=== PATIENT | female | born 1935 | race Caucasian/White ===

== ENCOUNTER 2017-09-07 12:58 | Emergency (ER) | payer MEDICARE, MEDICAID ==
[2017-09-07] MEDS ORDERED: Morphine 2 MG/ML Syringe IVPUSH PRN (13:40)
[2017-09-07] MEDS ORDERED: Sodium Chloride 0.9% 10 ML Syringe FLUSH PRN (13:40)
[2017-09-07] MEDS ORDERED: Nitroglycerin 0.4 MG Tab.SL SL PRN (13:40)
[2017-09-07] MEDS ORDERED: Aspirin 81 MG Tab.Chew PO ONE (13:40)
--- NOTE | 2017-09-07 13:43 | EDM.PDOC ---
ED HPI GENERAL MEDICAL PROBLEM - General Chief Complaint: Chest Pain Stated Complaint: CHEST PRESSURE Time Seen by Provider: 09/07/17 13:36 Source of Information: Reports: Patient, RN Notes Reviewed History Limitations: Reports: No Limitations - History of Present Illness INITIAL COMMENTS - FREE TEXT/NARRATIVE: 82-year-old female presents to the emergency department today complaint of chest pain states he's had chest pain since last evening did have nausea with pain no vomiting no diaphoresis or shortness of breath does have a history of coronary artery disease with stent placement in 2005 at this time she rates her pain 3 out of 10 Chest Pain Score (Numeric/FACES): 4 - Related Data Allergies Allergy/AdvReac Type Severity Reaction Status Date / Time No Known Allergies Allergy Verified 09/07/17 13:18 Home Meds: Home Meds Alendronate Sodium [Fosamax] 70 mg PO WEEKLY 09/07/17 [History] Aspirin 81 mg PO DAILY 09/07/17 [History] Calcium Carbonate [Calcium] 1 tab PO DAILY 09/07/17 [History] Clopidogrel [Plavix] 75 mg PO DAILY 09/07/17 [History] Ezetimibe [Zetia] 10 mg PO DAILY 09/07/17 [History] Furosemide 1 tab PO DAILY 09/07/17 [History] Glucosamine/D3/Boswellia Kalpana [Osteo Bi-Flex Tablet] 1 tab PO DAILY 09/07/17 [ History] Hydrochlorothiazide 1 tab PO DAILY 09/07/17 [History] Lisinopril 1 tab PO DAILY 09/07/17 [History] Metoprolol Tartrate 12.5 mg PO BID 09/07/17 [History] Niacin [Niaspan] 1,000 mg PO DAILY 09/07/17 [History] [place]-3 Fatty Acids [[place]-3] 1,000 mg PO DAILY 09/07/17 [History] Simvastatin [Zocor] 40 mg PO BEDTIME 09/07/17 [History] Past Medical History HEENT History: Reports: Impaired Vision Cardiovascular History: Reports: High Cholesterol, Hypertension, Stents 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 Denies: Palpitations GI/Abdominal: Reports: Nausea. Denies: Vomiting : Reports: No Symptoms Musculoskeletal: Reports: No Symptoms Skin: Reports: No Symptoms Neurological: Reports: No Symptoms ED EXAM, GENERAL - Physical Exam Exam: See Below Free Text/Narrative:: General: Female, not in any distress, alert and oriented x3 HEENT: head is atraumatic normocephalic, eyes pupils equal round reactive to light, sclera clear no conjunctivitis appreciated. Ears tympanic membranes clear and cowart landmarks and light reflex are present bilaterally canals are clear. Nose no septal deviation, nares are clear, no blood present. Mouth mucosa is moist and pink no erythema or exudate noted in soft palate, tongue is midline uvula is midline, dentures in place. Neck: Supple no thyromegaly no tracheal deviation. Nodes: Cervical nodes subclavicular nodes nontender no palpable lymphadenopathy noted. Lungs: clear to auscultation bilaterally with symmetrical respirations, no adventitious noise appreciated. CV: Regular rate and rhythm S1 and S2 appreciated no murmurs rubs or gallops noted. Abdomen: Soft, nontender, no palpable masses or organomegaly appreciated, no distention no guarding bowel sounds are present, . Neuro: Cranial nerves II through XII grossly intact Skin: Warm and dry, intact Extremities: No lower extremity edema appreciated, Course - Vital Signs Last Recorded V/S: Last Vital Signs Temp 97.3 F 09/07/17 13:13 Pulse 65 09/07/17 15:51 Resp 14 09/07/17 15:51 BP 141/72 H 09/07/17 15:51 Pulse Ox 96 09/07/17 15:51 - Orders/Labs/Meds Orders: Active Orders 24 hr Category Date Time Status Cardiac Monitoring [RC] .As Directed Care 09/07/17 13:40 Active EKG Documentation Completion [RC] ASDIRECTED Care 09/07/17 13:41 Active Peripheral IV Care [RC] . DIRECTED Care 09/07/17 13:41 Active Morphine Med 09/07/17 13:40 Active 2 mg IVPUSH Q10M PRN Nitroglycerin [Nitrostat] Med 09/07/17 13:40 Active 0.4 mg SL Q5M PRN Sodium Chloride 0.9% [Saline Flush] Med 09/07/17 13:40 Active 10 ml FLUSH ASDIRECTED PRN Peripheral IV Insertion Adult [OM.PC] Stat Oth 09/07/17 13:40 Ordered Saline Lock Insert [OM.PC] Stat Oth 09/07/17 13:40 Ordered EKG 12 Lead [EK] Stat Ther 09/07/17 13:41 Ordered Medication Orders Morphine Sulfate (Morphine) 2 mg IVPUSH Q10M PRN PRN Reason: Chest Pain Stop: 09/08/17 13:40 Last Admin: 09/07/17 13:59 Dose: 2 mg Nitroglycerin (Nitrostat) 0.4 mg SL Q5M PRN PRN Reason: Chest Pain Stop: 09/08/17 13:40 Last Admin: 09/07/17 13:59 Dose: 0.4 mg Sodium Chloride (Saline Flush) 10 ml FLUSH ASDIRECTED PRN PRN Reason: Keep Vein Open Last Admin: 09/07/17 13:59 Dose: 10 ml Labs: Laboratory Tests 09/07/17 09/07/17 09/07/17 Range/Units 13:53 13:53 15:49 WBC 4.6 (4.5-11.0) K/uL RBC 4.90 (3.30-5.50) M/uL Hgb 13.9 (12.0-15.0) g/dL Hct 41.2 (36.0-48.0) % MCV 84 (80-98) fL MCH 28 (27-31) pg MCHC 34 (32-36) % Plt Count 199 (150-400) K/uL Neut % (Auto) 61 (36-66) % Lymph % (Auto) 22 L (24-44) % White % (Auto) 13 H (2-6) % Eos % (Auto) 4 (2-4) % Baso % (Auto) 1 (0-1) % Sodium 140 (140-148) mmol/L Potassium 4.3 (3.6-5.2) mmol/L Chloride 103 (100-108) mmol/L Carbon Dioxide 30 (21-32) mmol/L Anion Gap 7.5 (5.0-14.0) mmol/L BUN 9 (7-18) mg/dL Creatinine 0.8 (0.6-1.0) mg/dL Est Cr Clr Drug Dosing 38.94 mL/min Estimated GFR (MDRD) > 60 (>60) Glucose 139 H (74-106) mg/dL Calcium 9.0 (8.5-10.1) mg/dL Total Bilirubin 0.3 (0.2-1.0) mg/dL AST 18 (15-37) U/L ALT 20 (12-78) U/L Alkaline Phosphatase 82 (46-116) U/L Troponin I < 0.017 < 0.017 (0.000-0.056) ng/mL Total Protein 6.9 (6.4-8.2) g/dL Albumin 3.8 (3.4-5.0) g/dL Globulin 3.1 (2.3-3.5) g/dL Albumin/Globulin Ratio 1.2 (1.2-2.2) Meds: Medications Generic Name Dose Route Start Last Admin Trade Name Freq PRN Reason Stop Dose Admin Morphine Sulfate 2 mg 09/07/17 13:40 09/07/17 13:59 Morphine IVPUSH 09/08/17 13:40 2 mg Q10M PRN Administration Chest Pain Nitroglycerin 0.4 mg 09/07/17 13:40 09/07/17 13:59 Nitrostat SL 09/08/17 13:40 0.4 mg Q5M PRN Administration Chest Pain Sodium Chloride 10 ml 09/07/17 13:40 09/07/17 13:59 Saline Flush FLUSH 10 ml ASDIRECTED PRN Administration Keep Vein Open Discontinued Medications Generic Name Dose Route Start Last Admin Trade Name Freq PRN Reason Stop Dose Admin Aspirin 324 mg 09/07/17 13:40 09/07/17 13:58 Aspirin PO 09/07/17 13:41 324 mg ONETIME ONE Administration Departure - Departure Time of Disposition: 16:44 Disposition: Home, Self-Care 01 Condition: Good Clinical Impression: Chest pain Qualifiers: Chest pain type: unspecified Qualified Code(s): R07.9 - Chest pain, unspecified Referrals: Juliano Mathews MD [Primary Care Provider] - Forms: ED Department Discharge Additional Instructions: Try Tums for your chest pain symptoms, Please followup with your primary care provider in 3-5 days if not better, please call return to the emergency department with worsening of symptoms. - My Orders Last 24 Hours: My Active Orders 09/07/17 13:40 Cardiac Monitoring [RC] .As Directed Morphine 2 mg IVPUSH Q10M PRN Nitroglycerin [Nitrostat] 0.4 mg SL Q5M PRN Sodium Chloride 0.9% [Saline Flush] 10 ml FLUSH ASDIRECTED PRN Peripheral IV Insertion Adult [OM.PC] Stat Saline Lock Insert [OM.PC] Stat 09/07/17 13:41 EKG Documentation Completion [RC] ASDIRECTED Peripheral IV Care [RC] . DIRECTED EKG 12 Lead [EK] Stat - Assessment/Plan Last 24 Hours: My Active Orders 09/07/17 13:40 Cardiac Monitoring [RC] .As Directed Morphine 2 mg IVPUSH Q10M PRN Nitroglycerin [Nitrostat] 0.4 mg SL Q5M PRN Sodium Chloride 0.9% [Saline Flush] 10 ml FLUSH ASDIRECTED PRN Peripheral IV Insertion Adult [OM.PC] Stat Saline Lock Insert [OM.PC] Stat 09/07/17 13:41 EKG Documentation Completion [RC] ASDIRECTED Peripheral IV Care [RC] . DIRECTED EKG 12 Lead [EK] Stat Plan: Assessment Acuity = acute Site and laterality = epigastric pain Etiology = suspicious for reflux symptomology Manifestations = none Location of injury = Home Lab values = CBC, CMP negative troponin negative 2 EKG demonstrates sinus rhythm no ST elevations or depressions, chest x-ray unremarkable Plan She had immediate relief combination morphine and nitroglycerin troponin was negative a couple hours apart she remained asymptomatic while in the emergency department she does admit to eating different foods yesterday bouts one suspicious for reflux symptomology she has used Tums in the past, recommend continuing Tums with reflux symptomology follow-up with primary care 3-5 days for reevaluation This note was dictated using [employer] voice recognition software please call with any questions on syntax or kane.
--- NOTE | 2017-09-07 14:17 | CR ---
Chest 1V Frontal HISTORY: Chest Pain COMPARISON: 06/07/2012 FINDINGS: Portable chest, 1358 hours. Lungs appear clear and normally aerated. Cardiomediastinal silhouette is within normal limits. There is atherosclerotic calcification in the aortic arch. No vascular redistribution or pleural fluid can be seen. Bony structures and soft tissues are stable. IMPRESSION: No acute chest abnormality or significant interval change is identified.
== END 2017-09-07 17:02 | disposition home or self-care (01) ==
LOC: JP.ED 12:58
DX: R07.9 Chest pain, unspecified (principal); I10 Essential (primary) hypertension; E78.00 Pure hypercholesterolemia, unspecified; Z79.82 Long term (current) use of aspirin; Z79.899 Other long term (current) drug therapy
CPT/HCPCS: 36415; 71045; 80053; 84484; 85025; 93005; 96374; 99285; A9270; J2270; J7050

== ENCOUNTER 2017-09-11 07:18 | Inpatient (IN) | payer MEDICARE, MEDICAID ==
[2017-09-11] MEDS ORDERED: Pantoprazole 40 MG Vial IVPUSH ONE (07:53)
[2017-09-11] MEDS ORDERED: Sodium Chloride 0.9% 1,000 ML IV SCH (08:00)
--- NOTE | 2017-09-11 08:03 | EDM.PDOC ---
ED HPI GENERAL MEDICAL PROBLEM - General Chief Complaint: Gastrointestinal Problem Stated Complaint: MED[facility] Time Seen by Provider: 09/11/17 07:40 Source of Information: Reports: Patient, EMS History Limitations: Reports: No Limitations - History of Present Illness INITIAL COMMENTS - FREE TEXT/NARRATIVE: 82-year-old female who had abdominal pain yesterday, that has improved but her stool has become very dark and bloody over the past 24 hours. No nausea or emesis. She is also feeling dizzy, lightheaded. She takes an aspirin daily but no other anticoagulants, has not taken any increased doses of aspirin or NSAIDs. She took some Tums yesterday. No shortness of breath or chest pain, has some chronic intermittent back pain, nothing new. No falls or trauma. On arrival the patient did have some stool incontinence which was obviously dark and bloody. Onset: Gradual (Some mixed black and normal stool 2 days ago, all dark yesterday.) Duration: Day(s): (Worsening over the last 24-48 hours) Severity: Moderate Associated Symptoms: Reports: Weakness, Other (Lightheaded or dizzy). Denies: Chest Pain, Cough, Diaphoresis, Fever/Chills, Nausea/Vomiting, Shortness of Breath - Related Data Allergies Allergy/AdvReac Type Severity Reaction Status Date / Time No Known Allergies Allergy Verified 09/07/17 13:18 Home Meds: Home Meds Alendronate Sodium [Fosamax] 70 mg PO WEEKLY 09/07/17 [History] Aspirin 81 mg PO DAILY 09/07/17 [History] Calcium Carbonate [Calcium] 1 tab PO DAILY 09/07/17 [History] Clopidogrel [Plavix] 75 mg PO DAILY 09/07/17 [History] Ezetimibe [Zetia] 10 mg PO DAILY 09/07/17 [History] Furosemide 1 tab PO DAILY 09/07/17 [History] Glucosamine/D3/Boswellia Kalpana [Osteo Bi-Flex Tablet] 1 tab PO DAILY 09/07/17 [ History] Hydrochlorothiazide 1 tab PO DAILY 09/07/17 [History] Lisinopril 1 tab PO DAILY 09/07/17 [History] Metoprolol Tartrate 12.5 mg PO BID 09/07/17 [History] Niacin [Niaspan] 1,000 mg PO DAILY 09/07/17 [History] [place]-3 Fatty Acids [[place]-3] 1,000 mg PO DAILY 09/07/17 [History] Simvastatin [Zocor] 40 mg PO BEDTIME 09/07/17 [History] Past Medical History HEENT History: Reports: Impaired Vision Cardiovascular History: Reports: High Cholesterol, Hypertension, Stents 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 Denies: Fever, Chills HEENT: Reports: No Symptoms Respiratory: Denies: Shortness of Breath, Cough Cardiovascular: Denies: Chest Pain, Palpitations GI/Abdominal: Reports: Abdominal Pain (Had some fairly significant waxing and waning abdominal pain yesterday, improved today), Diarrhea, Hematochezia, Melena. Denies: Nausea, Vomiting : Reports: No Symptoms Musculoskeletal: Reports: Back Pain (Chronic intermittent back pain) Neurological: Reports: Other (History of cerebral palsy) Psychiatric: Reports: No Symptoms ED EXAM, GI/ABD - Physical Exam Exam: See Below Exam Limited By: No Limitations General Appearance: Alert, No Apparent Distress Eyes: Bilateral: EOMI (No jaundice), Pale Conjunctiva (Slightly pale conjunctiva , she looks overall pale) Throat/Mouth: Normal Inspection Head: Atraumatic Respiratory/Chest: No Respiratory Distress, Lungs Clear Cardiovascular: Regular Rate, Rhythm, Other (Very distant heart sounds, sounded regular and mildly tachycardic no murmur) GI/Abdominal Exam: Soft, Non-Tender Extremities: No: Pedal Edema Neurological: Alert, Oriented Psychiatric: Normal Affect, Normal Mood Skin Exam: Warm, Dry Course - Vital Signs Last Recorded V/S: Last Vital Signs Temp 96.7 F 09/11/17 07:27 Pulse 96 09/11/17 09:30 Resp 16 09/11/17 09:30 BP 135/67 09/11/17 09:30 Pulse Ox 99 09/11/17 09:30 - Orders/Labs/Meds Orders: Active Orders 24 hr Category Date Time Status PATIENT RETYPE [BBK] Stat Lab 09/11/17 08:27 Results RED BLOOD CELLS LP [BBK] Stat Lab 09/11/17 08:27 Results TYPE AND SCREEN [BBK] Stat Lab 09/11/17 08:27 Results Medication Orders Acetaminophen (Tylenol) 650 mg PO Q4H PRN PRN Reason: Pain (Mild 1-3)/fever Potassium Cl/Dextrose/Lact Ringer's (D5 Lr With 20 Meq Kcl) 1,000 mls @ 125 mls /hr IV ASDIRECTED BHARGAVI Ondansetron HCl (Zofran Odt) 4 mg PO Q6H PRN PRN Reason: Nausea able to take PO Ondansetron HCl (Zofran) 4 mg IV Q6H PRN PRN Reason: Nausea/Vomiting Pantoprazole Sodium (Protonix Iv) 40 mg IV Q12H [facility] Labs: Laboratory Tests 09/11/17 09/11/17 09/11/17 Range/Units 07:58 07:58 07:58 WBC 5.6 (4.5-11.0) K/uL RBC 3.68 (3.30-5.50) M/uL Hgb 10.2 L D (12.0-15.0) g/dL Hct 31.2 L (36.0-48.0) % MCV 85 (80-98) fL MCH 28 (27-31) pg MCHC 33 (32-36) % Plt Count 183 (150-400) K/uL Neut % (Auto) 58 (36-66) % Lymph % (Auto) 29 (24-44) % Weber % (Auto) 11 H (2-6) % Eos % (Auto) 2 (2-4) % Baso % (Auto) 1 (0-1) % PT 10.6 (9.5-12.0) sec INR 0.99 (0.80-1.20) Sodium 143 (140-148) mmol/L Potassium 3.5 L (3.6-5.2) mmol/L Chloride 108 (100-108) mmol/L Carbon Dioxide 26 (21-32) mmol/L Anion Gap 12.5 (5.0-14.0) mmol/L BUN 45 H D (7-18) mg/dL Creatinine 0.9 (0.6-1.0) mg/dL Est Cr Clr Drug Dosing 34.62 mL/min Estimated GFR (MDRD) 60 (>60) Glucose 115 H (74-106) mg/dL Calcium 8.7 (8.5-10.1) mg/dL Total Bilirubin 0.3 (0.2-1.0) mg/dL AST 15 (15-37) U/L ALT 17 (12-78) U/L Alkaline Phosphatase 56 (46-116) U/L Total Protein 5.8 L (6.4-8.2) g/dL Albumin 3.2 L (3.4-5.0) g/dL Globulin 2.6 (2.3-3.5) g/dL Albumin/Globulin Ratio 1.2 (1.2-2.2) Blood Type Gel Antibody Screen Crossmatch 09/11/17 Range/Units 08:27 WBC (4.5-11.0) K/uL RBC (3.30-5.50) M/uL Hgb (12.0-15.0) g/dL Hct (36.0-48.0) % MCV (80-98) fL MCH (27-31) pg MCHC (32-36) % Plt Count (150-400) K/uL Neut % (Auto) (36-66) % Lymph % (Auto) (24-44) % Weber % (Auto) (2-6) % Eos % (Auto) (2-4) % Baso % (Auto) (0-1) % PT (9.5-12.0) sec INR (0.80-1.20) Sodium (140-148) mmol/L Potassium (3.6-5.2) mmol/L Chloride (100-108) mmol/L Carbon Dioxide (21-32) mmol/L Anion Gap (5.0-14.0) mmol/L BUN (7-18) mg/dL Creatinine (0.6-1.0) mg/dL Est Cr Clr Drug Dosing mL/min Estimated GFR (MDRD) (>60) Glucose (74-106) mg/dL Calcium (8.5-10.1) mg/dL Total Bilirubin (0.2-1.0) mg/dL AST (15-37) U/L ALT (12-78) U/L Alkaline Phosphatase (46-116) U/L Total Protein (6.4-8.2) g/dL Albumin (3.4-5.0) g/dL Globulin (2.3-3.5) g/dL Albumin/Globulin Ratio (1.2-2.2) Blood Type B POSITIVE Gel Antibody Screen Negative Crossmatch See Detail Meds: Medications Generic Name Dose Route Start Last Admin Trade Name Dana PRN Reason Stop Dose Admin Acetaminophen 650 mg 09/11/17 10:17 Tylenol PO Q4H PRN Pain (Mild 1-3)/fever Potassium Cl/Dextrose/Lact Ringer's 1,000 mls @ 125 mls/hr 09/11/17 10:17 D5 Lr With 20 Meq Kcl IV ASDIRECTED BHARGAVI Ondansetron HCl 4 mg 09/11/17 10:17 Zofran Odt PO Q6H PRN Nausea able to take PO Ondansetron HCl 4 mg 09/11/17 10:17 Zofran IV Q6H PRN Nausea/Vomiting Pantoprazole Sodium 40 mg 09/11/17 21:00 Protonix Iv IV Q12H BHARGAVI Discontinued Medications Generic Name Dose Route Start Last Admin Trade Name Dana PRN Reason Stop Dose Admin Sodium Chloride 1,000 mls @ 500 mls/hr 09/11/17 08:00 09/11/17 08:00 Normal Saline IV 500 mls/hr ASDIRECTED BHARGAVI Administration Pantoprazole Sodium 40 mg 09/11/17 07:53 09/11/17 08:00 Protonix Iv IVPUSH 09/11/17 07:54 40 mg ONETIME ONE Administration - Re-Assessments/Exams Free Text/Narrative Re-Assessment/Exam: 09/11/17 08:02 An IV was started, normal saline at 500 mL an hour and 40 mg of IV Protonix was given. CBC, CMP, INR were obtained. 09/11/17 08:27 Hemoglobin is 10.2, compared to 13.9 4 days ago. BUN is 45. 2 units of packed RBCs were typed and crossed in the hospitalist service was consulted for admission for GI bleed. Departure - Departure Time of Disposition: 10:18 Disposition: Admitted As Inpatient 66 Condition: Fair Clinical Impression: Acute upper gastrointestinal hemorrhage, Anemia associated with acute blood loss - Discharge Information - My Orders Last 24 Hours: My Active Orders 09/11/17 08:27 PATIENT RETYPE [BBK] Stat RED BLOOD CELLS LP [BBK] Stat TYPE AND SCREEN [BBK] Stat - Assessment/Plan Last 24 Hours: My Active Orders 09/11/17 08:27 PATIENT RETYPE [BBK] Stat RED BLOOD CELLS LP [BBK] Stat TYPE AND SCREEN [BBK] Stat
--- NOTE | 2017-09-11 09:42 | PCM.HP ---
H&P History of Present Illness - General Date of Service: 09/11/17 Admit Problem/Dx: Admission Diagnosis/Problem Admission Diagnosis/Problem Gastrointestinal hemorrhage Source of Information: Patient, Provider History Limitations: Reports: No Limitations - History of Present Illness Initial Comments - Free Text/Narative: Geeta presented to the emergency room with black tarry stools. She first noticed them yesterday and had several small volume black tarry stools throughout the day. She had some mild epigastric pain at the onset of the stools yesterday and this persisted but did seem to improve last night. In the middle of the night she had an episode of diaphoresis followed by a bowel movement and then more urgent bowel movement which was black and tarry. She has noticed increased heartburn over the past several days as well as some intermittent epigastric discomfort. She does not have a history of gastrointestinal bleeding. She has not had an appetite for the past 24 hours. No complaints of chest pain or shortness of breath. Functional status has been stable. She is on aspirin and Plavix for a remote history of ischemic heart disease. She occasionally takes an Advil PM. No alcohol or tobacco use. Workup in the emergency room revealed evidence for probable upper GI bleed with melena noted. Hemoglobin is down to 10 from 13 a few days ago. Blood pressures are on the low side of normal. She will be admitted for further management. - Related Data Allergies/Adverse Reactions: Allergies Allergy/AdvReac Type Severity Reaction Status Date / Time No Known Allergies Allergy Verified 09/07/17 13:18 Home Medications: Home Meds Alendronate Sodium [Fosamax] 70 mg PO WEEKLY 09/07/17 [History] Aspirin 81 mg PO DAILY 09/07/17 [History] Calcium Carbonate [Calcium] 1 tab PO DAILY 09/07/17 [History] Clopidogrel [Plavix] 75 mg PO DAILY 09/07/17 [History] Ezetimibe [Zetia] 10 mg PO DAILY 09/07/17 [History] Furosemide 1 tab PO DAILY 09/07/17 [History] Glucosamine/D3/Boswellia Kalp[place] [Osteo Bi-Flex Tablet] 1 tab PO DAILY 09/07/17 [ History] Hydrochlorothiazide 1 tab PO DAILY 09/07/17 [History] Lisinopril 1 tab PO DAILY 09/07/17 [History] Metoprolol Tartrate 12.5 mg PO BID 09/07/17 [History] Niacin [Niaspan] 1,000 mg PO DAILY 09/07/17 [History] [place]-3 Fatty Acids [[place]-3] 1,000 mg PO DAILY 09/07/17 [History] Simvastatin [Zocor] 40 mg PO BEDTIME 09/07/17 [History] Past Medical History HEENT History: Reports: Impaired Vision Cardiovascular History: Reports: High Cholesterol, Hypertension, Stents [employer] History: Reports: - Past Surgical History GI Surgical History: Reports: Appendectomy Other Musculoskeletal Surgeries/Procedures:: MULTIPLE SURGERIES R/T CP Social & Family History - Family History Cardiac: Reports: CAD (Father had [place] in his 50s, 3 brothers have had issues with ischemic heart disease) - Tobacco Use Smoking Status *Q: Never Smoker - Caffeine Use Caffeine Use: Reports: Coffee - Alcohol Use Alcohol Use History: No - Recreational Drug Use Recreational Drug Use: No H&P Review of Systems - Review of Systems: Review Of Systems: See Below Free Text/Narrative: A complete 12 point review of systems was obtained. Pertinent positives and negatives are noted in the history of present illness. All other systems were reviewed and were negative except as noted. Exam - Exam Exam: See Below - Vital Signs Vital Signs: Last Vital Signs Temp 35.9 C 09/11/17 07:27 Pulse 109 H 09/11/17 07:27 Resp 18 09/11/17 07:27 BP 115/62 09/11/17 07:27 Pulse Ox 99 09/11/17 07:27 Weight: 79.379 kg - Exam Quality Assessment: No: Supplemental Oxygen General: Alert, Oriented, Cooperative. No: Mild Distress HEENT: Conjunctiva Clear, Mucosa Moist & [place]. No: Scleral Icterus Neck: Supple, Trachea Midline. No: Lymphadenopathy Lungs: Clear to Auscultation, Normal Respiratory Effort Cardiovascular: Regular Rate, Regular Rhythm, Systolic Murmur GI/Abdominal Exam: Normal Bowel Sounds, Soft, Non-Tender, No Distention Extremities: Pedal Edema (Mild bilateral ankle edema). No: Increased Warmth Skin: Warm, Dry Neuro Extensive - Mental Status: Alert, Oriented x3, Nl Response to Commands Neuro Extensive - Motor, Sensory, Reflexes: No: Dysarthria, Tremor Psychiatric: Alert, Normal Affect - Patient Data Lab Results Last 24 hrs: Laboratory Results - last 24 hr 09/11/17 09/11/17 09/11/17 Range/Units 07:58 07:58 07:58 WBC 5.6 (4.5-11.0) K/uL RBC 3.68 (3.30-5.50) M/uL Hgb 10.2 L D (12.0-15.0) g/dL Hct 31.2 L (36.0-48.0) % MCV 85 (80-98) fL MCH 28 (27-31) pg MCHC 33 (32-36) % Plt Count 183 (150-400) K/uL Neut % (Auto) 58 (36-66) % Lymph % (Auto) 29 (24-44) % [place] % (Auto) 11 H (2-6) % Eos % (Auto) 2 (2-4) % Baso % (Auto) 1 (0-1) % PT 10.6 (9.5-12.0) sec INR 0.99 (0.80-1.20) Sodium 143 (140-148) mmol/L Potassium 3.5 L (3.6-5.2) mmol/L Chloride 108 (100-108) mmol/L Carbon Dioxide 26 (21-32) mmol/L Anion Gap 12.5 (5.0-14.0) mmol/L BUN 45 H D (7-18) mg/dL Creatinine 0.9 (0.6-1.0) mg/dL Est Cr Clr Drug Dosing 34.62 mL/min Estimated GFR (MDRD) 60 (>60) Glucose 115 H (74-106) mg/dL Calcium 8.7 (8.5-10.1) mg/dL Total Bilirubin 0.3 (0.2-1.0) mg/dL AST 15 (15-37) U/L ALT 17 (12-78) U/L Alkaline Phosphatase 56 (46-116) U/L Total Protein 5.8 L (6.4-8.2) g/dL Albumin 3.2 L (3.4-5.0) g/dL Globulin 2.6 (2.3-3.5) g/dL Albumin/Globulin Ratio 1.2 (1.2-2.2) Result Diagrams: 09/11/17 07:58 09/11/17 07:58 *Q Meaningful Use (ADM) - VTE Risk Assess *Q Each Risk Factor Represents 1 Point: Swollen Legs, Current, Obesity ( BMI > 25 kg/m2) Total Score 1 Point Risk Factors: 2 Each Risk Factor Represents 2 Points: None Total Score 2 Point Risk Factors: 0 Each Risk Factor Represents 3 Points: Age 75 Years or Greater Total Score 3 Point Risk Factors: 3 Each Risk Factor Represents 5 Points: None Total Score 5 Point Risk Factors: 0 Venous Thromboembolism Risk Factor Score *Q: 5 - Problem List (1) Acute upper gastrointestinal hemorrhage SNOMED Code(s): 22296023 ICD Code: K92.2 - GASTROINTESTINAL HEMORRHAGE, UNSPECIFIED Status: Acute Current Visit: Yes (2) Anemia associated with acute blood loss SNOMED Code(s): 697655753 ICD Code: D62 - ACUTE POSTHEMORRHAGIC ANEMIA Status: Acute Current Visit : Yes (3) Cerebral palsy SNOMED Code(s): 582468403 ICD Code: G80.9 - CEREBRAL PALSY, UNSPECIFIED Status: Chronic Current Visit: Yes Qualifiers: Cerebral palsy type: unspecified type Qualified Code(s): G80.9 - Cerebral palsy, unspecified (4) Coronary artery disease SNOMED Code(s): 81743931 ICD Code: I25.10 - ATHSCL HEART DISEASE OF [place] CORONARY ARTERY W/O ANG PCTRS Status: Chronic Current Visit: Yes Qualifiers: Coronary Disease-Associated Artery/Lesion type: [place] artery [place] vs. transplanted heart: [place] heart Associated angina: without angina Qualified Code(s): I25.10 - Atherosclerotic heart disease of [place] coronary artery without angina pectoris Problem List Initiated/Reviewed/Updated: Yes Orders Last 24hrs: Active Orders 24 hr Category Date Time Status Patient Status Manage Transfer [TRANSFER] Routine ADT 09/11/17 09:23 Active RED BLOOD CELLS LP [BBK] Stat Lab 09/11/17 08:27 Ordered TYPE AND SCREEN [BBK] Stat Lab 09/11/17 08:27 Ordered Sodium Chloride 0.9% [Normal Saline] 1,000 ml Med 09/11/17 08:00 Active IV ASDIRECTED Resuscitation Status Routine Resus Stat 09/11/17 09:25 Ordered Medication Orders Sodium Chloride (Normal Saline) 1,000 mls @ 500 mls/hr IV ASDIRECTED BHARGAVI Last Admin: 09/11/17 08:00 Dose: 500 mls/hr Assessment/Plan Comment:: ASSESSMENT AND PLAN - Probable acute upper GI hemorrhage with acute blood loss anemia - 3 g hemoglobin drop in the past few days. Blood pressures on the low side of normal. Suspect gastric source with increased heartburn. She is on dual antiplatelet therapy and occasionally uses ibuprofen. No history of GI bleeding. She has received a dose of pantoprazole. Two units have been typed and crossed. -Admit to the intensive care unit -Continue IV fluids -Every 12 hour IV PPI -Nothing by mouth -Upper endoscopy with Dr. Dutta this afternoon -Serial hemoglobin levels, transfuse if <8 or unstable Coronary artery disease - remote history of stenting, disease has been stable. She is on dual antiplatelet therapy. -Hold medications including antiplatelet therapy -Restart medications as able post procedure Cerebral palsy - significant disability, unable to ambulate because of disease. Maintenance issues - - DVT prophylaxis - mechanical with active hemorrhage - GI prophylaxis - IV PPI - Nutrition - nothing by mouth - Barros catheter - not indicated CODE STATUS - full code Admission justification - This patient will be admitted for inpatient services and is medically appropriate meeting medical necessity for inpatient admission as outlined in my documentation. I reasonably expect the patient will require inpatient services that span a period time over 2 midnights. I reasonably expect this patient to be discharged or transferred within 96 hours [facility]. Disposition - anticipate discharge home after the hospital stay Primary care physician - Dr. Reid Lazcano M.D.
[2017-09-11] MEDS ORDERED: Dextrose 5%-Lact Ringers w/KCl 1,000 ML IV SCH (10:17)
[2017-09-11] MEDS ORDERED: Ondansetron 4 MG Tab.DIS PO PRN (10:17)
[2017-09-11] MEDS ORDERED: Acetaminophen 325 MG Tab PO PRN (10:17)
[2017-09-11] MEDS ORDERED: Ondansetron 4 MG/2 ML SDV IV PRN (10:17)
[2017-09-11] MEDS ORDERED: fentaNYL 100 MCG/2 ML SDV ONE (11:16)
[2017-09-11] MEDS ORDERED: Propofol 200 MG/20 ML SDV ONE (11:16)
[2017-09-11] MEDS ORDERED: Lactated Ringers 1,000 ML ONE (11:52)
[2017-09-11] MEDS ORDERED: Pantoprazole 40 MG Vial IV SCH (21:00)
[2017-09-12] MEDS: Pantoprazole 40 MG Tab.CR PO SCH ×2 (08:07→16:23)
--- NOTE | 2017-09-12 10:15 | PCM.PN ---
- General Info Date of Service: 09/12/17 Functional Status: Reports: Pain Controlled, Tolerating Diet - Review of Systems General: Denies: Fever Gastrointestinal: Denies: Abdominal Pain, Melena Neurological: Reports: Dizziness Systems Review Comment:: No acute events overnight. No more evidence for bleeding. Hemoglobin seems to have stabilized in the mid 8 range. No abdominal pain. No heartburn. Tolerating diet. - Patient Data Vitals - Most Recent: Last Vital Signs Temp 37.2 C 09/12/17 08:00 Pulse 92 09/12/17 08:59 Resp 14 09/12/17 08:59 BP 135/74 09/12/17 08:59 Pulse Ox 96 09/12/17 08:59 Weight - Most Recent: 79.379 kg I&O - Last 24 Hours: Intake & Output 09/11/17 09/12/17 09/12/17 22:59 06:59 14:59 Intake Total 930 90 Output Total 570 300 Balance 360 -210 Lab Results Last 24 Hours: Laboratory Results - last 24 hr 09/11/17 09/11/17 09/12/17 Range/Units 15:00 22:00 05:58 WBC 5.4 (4.5-11.0) K/uL RBC 3.04 L (3.30-5.50) M/uL Hgb 8.8 L 8.6 L 8.5 L (12.0-15.0) g/dL Hct 26.3 L (36.0-48.0) % MCV 87 (80-98) fL MCH 28 (27-31) pg MCHC 32 (32-36) % Plt Count 172 (150-400) K/uL Sodium (140-148) mmol/L Potassium (3.6-5.2) mmol/L Chloride (100-108) mmol/L Carbon Dioxide (21-32) mmol/L Anion Gap (5.0-14.0) mmol/L BUN (7-18) mg/dL Creatinine (0.6-1.0) mg/dL Est Cr Clr Drug Dosing mL/min Estimated GFR (MDRD) (>60) Glucose (74-106) mg/dL Calcium (8.5-10.1) mg/dL 09/12/17 Range/Units 05:58 WBC (4.5-11.0) K/uL RBC (3.30-5.50) M/uL Hgb (12.0-15.0) g/dL Hct (36.0-48.0) % MCV (80-98) fL MCH (27-31) pg MCHC (32-36) % Plt Count (150-400) K/uL Sodium 148 (140-148) mmol/L Potassium 4.0 (3.6-5.2) mmol/L Chloride 113 H (100-108) mmol/L Carbon Dioxide 26 (21-32) mmol/L Anion Gap 13.0 (5.0-14.0) mmol/L BUN 17 D (7-18) mg/dL Creatinine 0.8 (0.6-1.0) mg/dL Est Cr Clr Drug Dosing 38.94 mL/min Estimated GFR (MDRD) > 60 (>60) Glucose 107 H (74-106) mg/dL Calcium 8.0 L (8.5-10.1) mg/dL Med Orders - Current: Current Medications Acetaminophen (Tylenol) 650 mg PO Q4H PRN PRN Reason: Pain (Mild 1-3)/fever Ondansetron HCl (Zofran Odt) 4 mg PO Q6H PRN PRN Reason: Nausea able to take PO Ondansetron HCl (Zofran) 4 mg IV Q6H PRN PRN Reason: Nausea/Vomiting Pantoprazole Sodium (Protonix) 40 mg PO BIDAC [facility] Last Admin: 09/12/17 08:07 Dose: 40 mg Discontinued Medications Fentanyl (Sublimaze) Confirm Administered Dose 100 mcg .ROUTE [email or web address] ONE Stop: 09/11/17 11:17 Sodium Chloride (Normal Saline) 1,000 mls @ 500 mls/hr IV ASDIRECTED [facility] Last Admin: 09/11/17 08:00 Dose: 500 mls/hr Potassium Cl/Dextrose/Lact Ringer's (D5 Lr With 20 Meq Kcl) 1,000 mls @ 125 mls /hr IV ASDIRECTED [facility] Last Admin: 09/11/17 10:32 Dose: 125 mls/hr Lactated Ringer's (Ringers, Lactated) Confirm Administered Dose 1,000 mls @ as directed .ROUTE [email or web address] ONE Stop: 09/11/17 11:53 Pantoprazole Sodium (Protonix Iv) 40 mg IVPUSH ONETIME ONE Stop: 09/11/17 07:54 Last Admin: 09/11/17 08:00 Dose: 40 mg Pantoprazole Sodium (Protonix Iv) 40 mg IV Q12H BHARGAVI Stop: 09/11/17 23:00 Last Admin: 09/11/17 22:00 Dose: 40 mg Propofol (Diprivan 20 Ml) Confirm Administered Dose 200 mg .ROUTE .[employer] ONE Stop: 09/11/17 11:17 - Exam Quality Assessment: No: Supplemental Oxygen General: Alert, Oriented, Cooperative, No Acute Distress Neck: Supple Lungs: Normal Respiratory Effort GI/Abdominal Exam: Soft, No Distention Extremities: Pedal Edema Psy/Mental Status: Alert, Normal Affect - Problem List & Annotations (1) Acute upper gastrointestinal hemorrhage SNOMED Code(s): 02886392 Code(s): K92.2 - GASTROINTESTINAL HEMORRHAGE, UNSPECIFIED Status: Acute Current Visit: Yes (2) Anemia associated with acute blood loss SNOMED Code(s): 145475568 Code(s): D62 - ACUTE POSTHEMORRHAGIC ANEMIA Status: Acute Current Visit: Yes (3) Cerebral palsy SNOMED Code(s): 451734190 Code(s): G80.9 - CEREBRAL PALSY, UNSPECIFIED Status: Chronic Current Visit: Yes Qualifiers: Cerebral palsy type: unspecified type Qualified Code(s): G80.9 - Cerebral palsy, unspecified (4) Coronary artery disease SNOMED Code(s): 01567107 Code(s): I25.10 - ATHSCL HEART DISEASE OF [place] CORONARY ARTERY W/O ANG PCTRS Status: Chronic Current Visit: Yes Qualifiers: Coronary Disease-Associated Artery/Lesion type: [place] artery [place] vs. transplanted heart: [place] heart Associated angina: without angina Qualified Code(s): I25.10 - Atherosclerotic heart disease of [place] coronary artery without angina pectoris - Problem List Review Problem List Initiated/Reviewed/Updated: Yes - My Orders Last 24 Hours: My Active Orders 09/11/17 09:25 Resuscitation Status Routine 09/11/17 10:17 Patient Status [ADT] Routine Bedrest Bedside Commode [RC] ASDIRECTED Cardiac Monitoring [RC] CONTINUOUS Intake and Output [RC] QSHIFT Notify Provider Consults [RC] ASDIRECTED Notify Provider Vital Signs [RC] ASDIRECTED Oxygen Therapy [RC] PRN Up With Assistance [RC] ASDIRECTED VTE/DVT Education [RC] Per Unit Routine Vital Signs [RC] Q2HR Consult to Physician [CONS] Routine Acetaminophen [Tylenol] 650 mg PO Q4H PRN Ondansetron [Zofran ODT] 4 mg PO Q6H PRN Ondansetron [Zofran] 4 mg IV Q6H PRN Sequential Compression Device [OM.PC] Per Unit Routine VTE Pharmacological Contraindications [AST] Per Unit Routine 09/11/17 16:57 Convert IV to Saline Lock [OM.PC] Routine 09/12/17 07:30 Pantoprazole [ProTONIX] 40 mg PO BIDAC 09/12/17 10:13 Transfer Patient (Change bed) [ADT] Routine 09/12/17 10:15 Lisinopril [Prinivil] 1 tab PO DAILY Metoprolol Tartrate [Lopressor] 12.5 mg PO BID 09/13/17 05:00 BASIC METABOLIC PANEL,BMP [CHEM] Timed CBC W/O DIFF,HEMOGRAM [HEME] Timed (1) 09/13/17 09:00 Aspirin 81 mg PO DAILY Hydrochlorothiazide 1 tab PO DAILY - Plan Plan:: ASSESSMENT AND PLAN - Acute upper GI hemorrhage with acute blood loss anemia - secondary to prepyloric ulcer with no active bleeding noted at time of endoscopy yesterday. Hemoglobin has been stable overnight and vital signs have been stable as well. -Saline lock IV -Twice daily PPI -Advance to regular diet -Iron transfusion today -Hemoglobin in the morning Coronary artery disease - remote history of stenting, disease has been stable. She is on dual antiplatelet therapy. -Hold medications including antiplatelet therapy -Restart medications today other than clopidogrel Cerebral palsy - significant disability, unable to ambulate because of disease. Maintenance issues - - DVT prophylaxis - mechanical with active hemorrhage - GI prophylaxis - PPI - Nutrition - regular diet Disposition - anticipate discharge home after the hospital stay, likely tomorrow if stable overnight Waldo Lazcano M.D.
[2017-09-12] MEDS: Metoprolol Tartrate 25 MG Tab PO SCH ×2 (11:37→21:28)
[2017-09-12] MEDS: Lisinopril 10 MG Tab PO SCH (11:37)
[2017-09-12] MEDS ORDERED: Sodium Ferric Gluconate Cmplex 250 MG in Sodium Chloride 0.9% 100 ML IV ONE (14:00)
--- NOTE | 2017-09-12 19:13 | PN ---
DATE OF SERVICE: 09/12/2017 The patient has been clinically stable overnight. No further bleeding has been noted. Her hemoglobin is stable at 8.5. The recommendation at this point would be to continue the Protonix. We will await the CLOtest results. If those are positive, we via the standard H. pylori regimens. Otherwise she should have a repeat endoscopy in 1 month to follow up the gastric ulcer to confirm that it is healed to rule out any malignancy. Lul Dutta MD /[id number]
[2017-09-13] MEDS: Pantoprazole 40 MG Tab.CR PO SCH (07:38)
[2017-09-13] MEDS ORDERED: Aspirin 81 MG Tab.Chew PO SCH (09:00)
[2017-09-13] MEDS ORDERED: Hydrochlorothiazide 25 MG Tab PO SCH (09:00)
[2017-09-13] MEDS: Metoprolol Tartrate 25 MG Tab PO SCH (09:25)
[2017-09-13] MEDS: Lisinopril 10 MG Tab PO SCH (09:25)
--- NOTE | 2017-09-13 12:01 | PCM.DCSUM1 ---
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 She was admitted for management of acute gastrointestinal hemorrhage. - Discharge Data Discharge Date: 09/13/17 Discharge Disposition: Home, [facility] 06 Condition: Good - Discharge Diagnosis/Problem(s) (1) Acute upper gastrointestinal hemorrhage SNOMED Code(s): 61994989 ICD Code: K92.2 - GASTROINTESTINAL HEMORRHAGE, UNSPECIFIED Status: Acute (2) Anemia associated with acute blood loss SNOMED Code(s): 497634628 ICD Code: D62 - ACUTE POSTHEMORRHAGIC ANEMIA Status: Acute (3) Cerebral palsy SNOMED Code(s): 680820000 ICD Code: G80.9 - CEREBRAL PALSY, UNSPECIFIED Status: Chronic Qualifiers: Cerebral palsy type: unspecified type Qualified Code(s): G80.9 - Cerebral palsy, unspecified (4) Coronary artery disease SNOMED Code(s): 45112036 ICD Code: I25.10 - ATHSCL HEART DISEASE OF [place] CORONARY ARTERY W/O ANG PCTRS Status: Chronic Qualifiers: Coronary Disease-Associated Artery/Lesion type: elem artery [place] vs. transplanted heart: elem heart Associated angina: without angina Qualified Code(s): I25.10 - Atherosclerotic heart disease of [place] coronary artery without angina pectoris - Patient Summary/Data Consults: Consultations 09/11/17 10:17 Consult to Physician [CONS] Routine Consulting Provider: Lul Duttaesy Call Completed to Consulting Physician: Yes Reason for Consult: GI hemorrhage Person Notified: SANDHU Date Notified: 09/11/17 Special Instructions: EGD this afternoon 09/13/17 07:43 Consult to Physician [CONS] Routine Consulting Provider: Waldo Lazcano Call Completed to Consulting Physician: already seeing patient Special Instructions: Lul Dutta MD referring her low hemoglobin for you to address regarding transfusion. Hospital Course: Geeta presented to the emergency room with weakness and melena. Workup in the emergency room was suggestive of acute upper gastrointestinal hemorrhage with acute blood loss anemia. Her hemoglobin was noted to be approximately 4 points lower than several days prior. 2 units of blood were typed and crossed and she was given aggressive IV fluids. She received IV Protonix in the emergency room and was admitted to the intensive care unit. Her blood pressure did improve with IV fluids. The afternoon after admission she was taken to the operating room by Dr. Dutta and an upper endoscopy was performed. This showed a prepyloric ulcer that did not appear to be actively bleeding. Biopsies were taken. She was returned to the intensive care unit and started on a full liquid diet. Serial hemoglobin levels were measured overnight and into the next day. She was started on a twice daily proton pump inhibitor. Hemoglobin did drop down to about 8.6 but remained stable there for 24 hours. We did give her an infusion of iron the day after admission. Vital signs remained stable and she tolerated her diet well. She did have a few very small quantity episodes of melena but these have resolved at the time of discharge. Hemoglobin level on the day of discharge did drop down to 7.7 and with her history of coronary artery disease have elected to give her 1 unit of packed red blood cells. She tolerated this transfusion well. She feels strong enough to be safe at home and is able to transfer from bed to chair at level similar to what she normally does at home. She will be discharged home and continue her usual home health care services. She will be following up with primary care in 1-2 weeks and will be following up with Dr. Dutta for repeat endoscopy in approximately 4-6 weeks to ensure that the ulcer has continued to heal. She will be receiving a prescription for pantoprazole which she should take twice daily after hospital discharge to help the ulcer heal. - Patient Instructions Diet: Regular Diet as Tolerated Activity: As Tolerated Showering/Bathing: May Shower Notify Provider of: Fever, Increased Pain, Nausea and/or Vomiting Other/Special Instructions: 1. You were in the hospital for management of a gastrointestinal bleed caused by an ulcer in the bottom portion of your stomach. The bleeding has stopped. Your hemoglobin level did drop significantly because of the bleed and you did require a blood transfusion and you also received an iron transfusion. To help the ulcer heal up I recommend that you take pantoprazole (Protonix) 40 mg twice daily with meals. This medication reduces stomach acid and will help the ulcer heal. 2. Continue your other home medications as previously prescribed. 3. Resume previous home care orders. 4. Follow-up with Dr. Dutta in October as recommended for a repeat endoscopy to ensure the ulcer is healing. 5. Please seek medical attention if you develop fever greater than 101, if you have return of the black, tarry stools or if you develop dizziness/lightheadedness. - Discharge Plan Prescriptions/Med Rec: Pantoprazole [ProTONIX] 40 mg PO BIDAC #60 tab.cr Home Medications: Home Meds Alendronate Sodium [Fosamax] 70 mg PO WEEKLY 09/07/17 [History] Aspirin 81 mg PO DAILY 09/07/17 [History] Calcium Carbonate [Calcium] 1 tab PO DAILY 09/07/17 [History] Clopidogrel [Plavix] 75 mg PO DAILY 09/07/17 [History] Ezetimibe [Zetia] 10 mg PO DAILY 09/07/17 [History] Furosemide 1 tab PO DAILY 09/07/17 [History] Glucosamine/D3/Boswellia Kalpana [Osteo Bi-Flex Tablet] 1 tab PO DAILY 09/07/17 [ History] Hydrochlorothiazide 1 tab PO DAILY 09/07/17 [History] Lisinopril 1 tab PO DAILY 09/07/17 [History] Metoprolol Tartrate 12.5 mg PO BID 09/07/17 [History] Niacin [Niaspan] 1,000 mg PO DAILY 09/07/17 [History] [place]-3 Fatty Acids [[place]-3] 1,000 mg PO DAILY 09/07/17 [History] Simvastatin [Zocor] 40 mg PO BEDTIME 09/07/17 [History] Pantoprazole [ProTONIX] 40 mg PO BIDAC #60 tab.cr 09/13/17 [Rx] Patient Handouts: Gastrointestinal Bleeding, [id number], Pantoprazole tablets Referrals: Juliano Mathews MD [Physician] - (1-2 weeks - follow-up hospital stay for prepyloric ulcer with gastrointestinal hemorrhage) - Discharge Summary/Plan Comment DC Time >30 min.: No (25) - Patient Data Vitals - Most Recent: Last Vital Signs Temp 37.1 C 09/13/17 11:36 Pulse 78 09/13/17 11:36 Resp 16 09/13/17 11:36 BP 124/60 09/13/17 11:36 Pulse Ox 95 09/13/17 07:31 Weight - Most Recent: 79.379 kg I&O - Last 24 hours: Intake & Output 09/12/17 09/13/17 09/13/17 22:59 06:59 14:59 Intake Total 240 240 0 Balance 240 240 0 Lab Results - Last 24 hrs: Laboratory Results - last 24 hr 09/11/17 09/13/17 09/13/17 Range/Units 08:27 04:50 04:50 WBC 5.4 (4.5-11.0) K/uL RBC 2.84 L (3.30-5.50) M/uL Hgb 7.7 L (12.0-15.0) g/dL Hct 24.9 L (36.0-48.0) % MCV 88 (80-98) fL MCH 27 (27-31) pg MCHC 31 L (32-36) % Plt Count 153 (150-400) K/uL Sodium 147 (140-148) mmol/L Potassium 3.9 (3.6-5.2) mmol/L Chloride 112 H (100-108) mmol/L Carbon Dioxide 26 (21-32) mmol/L Anion Gap 12.9 (5.0-14.0) mmol/L BUN 12 (7-18) mg/dL Creatinine 0.7 (0.6-1.0) mg/dL Est Cr Clr Drug Dosing 44.51 mL/min Estimated GFR (MDRD) > 60 (>60) Glucose 116 H (74-106) mg/dL Calcium 8.0 L (8.5-10.1) mg/dL Blood Type B POSITIVE Gel Antibody Screen Negative Crossmatch See Detail AVINASH Results - Last 24 hrs: Microbiology 09/11/17 11:55 CLOtest - Final Stomach NEGATIVE CLOTEST Med Orders - Current: Current Medications Acetaminophen (Tylenol) 650 mg PO Q4H PRN PRN Reason: Pain (Mild 1-3)/fever Aspirin (Aspirin) 81 mg PO DAILY [facility] Last Admin: 09/13/17 09:25 Dose: 81 mg Hydrochlorothiazide (Hydrochlorothiazide) 25 mg PO DAILY [facility] Last Admin: 09/13/17 09:25 Dose: 25 mg Lisinopril (Prinivil) 10 mg PO DAILY [facility] Last Admin: 09/13/17 09:25 Dose: 10 mg Metoprolol Tartrate (Lopressor) 12.5 mg PO BID [facility] Last Admin: 09/13/17 09:25 Dose: 12.5 mg Ondansetron HCl (Zofran Odt) 4 mg PO Q6H PRN PRN Reason: Nausea able to take PO Ondansetron HCl (Zofran) 4 mg IV Q6H PRN PRN Reason: Nausea/Vomiting Pantoprazole Sodium (Protonix) 40 mg PO BIDAC [facility] Last Admin: 09/13/17 07:38 Dose: 40 mg Discontinued Medications Fentanyl (Sublimaze) Confirm Administered Dose 100 mcg .ROUTE .STK-MED ONE Stop: 09/11/17 11:17 Sodium Chloride (Normal Saline) 1,000 mls @ 500 mls/hr IV ASDIRECTED [facility] Last Admin: 09/11/17 08:00 Dose: 500 mls/hr Potassium Cl/Dextrose/Lact Ringer's (D5 Lr With 20 Meq Kcl) 1,000 mls @ 125 mls /hr IV ASDIRECTED [facility] Last Admin: 09/11/17 10:32 Dose: 125 mls/hr Lactated Ringer's (Ringers, Lactated) Confirm Administered Dose 1,000 mls @ as directed .ROUTE .K-MED ONE Stop: 09/11/17 11:53 Ferric Sodium Gluconate Complex 250 mg/ Sodium Chloride 120 mls @ 60 mls/hr IV ONETIME ONE Stop: 09/12/17 15:59 Last Admin: 09/12/17 13:59 Dose: 60 mls/hr Pantoprazole Sodium (Protonix Iv) 40 mg IVPUSH ONETIME ONE Stop: 09/11/17 07:54 Last Admin: 09/11/17 08:00 Dose: 40 mg Pantoprazole Sodium (Protonix Iv) 40 mg IV Q12H [facility] Stop: 09/11/17 23:00 Last Admin: 09/11/17 22:00 Dose: 40 mg Propofol (Diprivan 20 Ml) Confirm Administered Dose 200 mg .ROUTE .STK-MED ONE Stop: 09/11/17 11:17 - Exam Quality Assessment: Denies: Supplemental Oxygen General: Reports: Alert, Oriented, Cooperative, No Acute Distress Neck: Reports: Supple Lungs: Reports: Normal Respiratory Effort Cardiovascular: Reports: Regular Rate, Regular Rhythm GI/Abdominal Exam: No Distention Extremities: No Pedal Edema Psy/Mental Status: Reports: Alert, Normal Affect *Q Meaningful Use (DIS) - VTE *Q VTE Pharmacological Contraindications *Q: Active Hemorrhage
--- NOTE | 2017-09-17 17:14 | OR ---
DATE OF PROCEDURE: 09/11/2017 PREOPERATIVE DIAGNOSIS: Probable upper gastrointestinal bleeding. POSTOPERATIVE DIAGNOSIS: Pre prepyloric gastric ulcer with underlying erosive gastritis (no active bleeding). OPERATIVE PROCEDURE: Esophagogastroduodenoscopy with antral biopsies for CLOtest. ANESTHESIA: IV sedation. INDICATION FOR PROCEDURE: An 82-year-old admitted with a picture of a probable upper GI bleeding. Plan is to proceed with upper GI endoscopy with biopsies as indicated. Potential risks including bleeding and perforation were discussed, and the patient wishes to proceed. DETAILS OF THE PROCEDURE: The patient was taken to the operating room and placed in a left lateral decubitus position. IV sedation was administered, after which the upper GI endoscope was passed orally through the length of the esophagus into the stomach with retroflexion to view the fundus, and thereafter through the pyloric channel into the junction of the third and fourth portions of the duodenum. Findings included normal hypopharynx, larynx, upper esophageal sphincter, and esophageal body. The EG junction was unremarkable and the proximal stomach was likewise normal. As one approached the antral area, generalized gastritis was present. There was some erosion within this region as well as a well established pre-pyloric ulcer, the latter was covered with fibrinous material. Did not have any appeared most likely benign. The pyloric channel and visualized portions of the duodenum were unremarkable. At this point, biopsies were obtained from the antral areas and sent for CLOtest for H. pylori. Minimal bleeding from the biopsy sites was seen, and the procedure concluded. The patient was taken to the recovery room in satisfactory condition. RECOMMENDATION: The patient will be continued on her PPI regimen and if the CLOtest is positive, she should be treated with one of the standard H. pylori regimens. With this being a gastric ulcer, the patient should undergo a repeat endoscopy in 4 to 6 weeks to confirm healing to rule out any underlying malignancy. Lul Dutta MD /[id number]
== END 2017-09-13 14:11 | disposition home health service (06) | DRG 378 ==
LOC: JP.ED 07:18 → JP.ICU 09:23 → JP.MS 09-12 18:00
PROVIDERS: ADMIT Internal Medicine; ATTEND Internal Medicine
PROC: 0DB68ZX Excision of Stomach, Via Natural or Artificial Opening Endoscopic, Diagnostic (ICD-10-PCS; 2017-09-11)
PROC: 30233N1 Transfusion of Nonautologous Red Blood Cells into Peripheral Vein, Percutaneous Approach (ICD-10-PCS; principal; 2017-09-13)
DX: K92.2 Gastrointestinal hemorrhage, unspecified (principal); K92.1 Melena; R10.9 Unspecified abdominal pain; R42 Dizziness and giddiness; R53.1 Weakness; K25.4 Chronic or unspecified gastric ulcer with hemorrhage; D62 Acute posthemorrhagic anemia; I25.9 Chronic ischemic heart disease, unspecified; H54.7 Unspecified visual loss; E78.00 Pure hypercholesterolemia, unspecified; I10 Essential (primary) hypertension; E66.9 Obesity, unspecified; I25.10 Atherosclerotic heart disease of native coronary artery without angina pectoris; R12 Heartburn; G89.29 Other chronic pain; M54.9 Dorsalgia, unspecified; R19.7 Diarrhea, unspecified; Z79.02 Long term (current) use of antithrombotics/antiplatelets; Z95.5 Presence of coronary angioplasty implant and graft; Z79.82 Long term (current) use of aspirin; Z79.899 Other long term (current) drug therapy; Z68.35 Body mass index [BMI] 35.0-35.9, adult; G80.9 Cerebral palsy, unspecified
CPT/HCPCS: 36415; 80053; 85025; 85610; 86850; 86900; 86901; 86920; 86922; 96361; 96374; 99284; 99285; C9113; J7040; 36430; 80048; 85018; 85027; 87081; A9270-GY; J2704; J2916; J3010; J3480; J7030; J7120; P9016

== ENCOUNTER 2017-10-15 06:15 | Day surgery (SDC) | payer MEDICARE, MEDICAID ==
[2017-10-15] MEDS ORDERED: Dextrose 5%-Lactated Ringers 1,000 ML IV SCH (06:30)
[2017-10-15] MEDS ORDERED: fentaNYL 100 MCG/2 ML SDV ONE (07:08)
[2017-10-15] MEDS ORDERED: Propofol 200 MG/20 ML SDV ONE (07:08)
[2017-10-15] MEDS ORDERED: Glycopyrrolate 0.2 MG/ML 2 ML SDV IVPUSH ONE (07:30)
[2017-10-15] MEDS ORDERED: Pantoprazole 40 MG Vial IVPUSH ONE (07:50)
--- NOTE | 2017-10-17 11:02 | OR ---
DATE OF PROCEDURE: 10/15/2017 PREOPERATIVE DIAGNOSIS: Recent diagnosis of gastric ulcer. POSTOPERATIVE DIAGNOSIS: Healed gastric ulcer within field of persistent [id number] antral gastritis. PROCEDURE PERFORMED: Upper GI endoscopy with biopsies of antrum for CLOtest. ANESTHESIA: IV sedation. INDICATION FOR PROCEDURE: This is an 82-year-old who recently underwent upper endoscopy at the time of GI bleeding, was noted to have a pre-pyloric gastric ulcer. She was placed on the Protonix and presents now for a followup endoscopy to confirm healing of the ulcer. She has not had any black or bloody stools since the initiation of Protonix and generally is not having any epigastric pain per se. Plan is to proceed with upper GI endoscopy with biopsies as indicated. Potential risks including bleeding and perforation were discussed, and the patient wishes to proceed. DETAILS OF PROCEDURE: The patient was taken to the operating room and placed in a left lateral decubitus position. IV sedation was administered, after which the upper GI endoscope was passed orally through the length of the esophagus and into the stomach with retroflexion view of the fundus, thereafter through the pyloric channel to the junction of the third and fourth portions of the duodenum. Findings included normal hypopharynx, larynx, upper esophageal sphincter, and esophageal body. There was no significant hiatal hernia at the EG junction. Within the stomach, the proximal stomach was unremarkable. Within the antrum, there was diffuse redness and some edema present consistent with [id number] antral gastritis. However, there were no erosions in the previous ulcer is now well healed. The pyloric channel and the visualized portions of the duodenum were unremarkable. At this point, biopsies were obtained from the antrum once again to assess the H. pylori status. Minimal bleeding from the biopsy site was seen, and the procedure then concluded. The patient was taken to the recovery room in satisfactory condition. Given these findings, the patient should probably remain on Protonix or some other proton pump inhibitor long-term, and she will be following up with Dr. Mathews in 2 months. Lul Dutta MD /[id number]
== END 2017-10-15 09:55 | disposition home or self-care (01) ==
LOC: JP.SDS 06:15
PROVIDERS: ATTEND Surgery
DX: Z09 Encounter for follow-up examination after completed treatment for conditions other than malignant neoplasm (principal); K29.70 Gastritis, unspecified, without bleeding; I10 Essential (primary) hypertension; Z87.11 Personal history of peptic ulcer disease; Z79.899 Other long term (current) drug therapy
CPT/HCPCS: 43239; 87081; J2704; J3010; J7042; J3490

== ENCOUNTER 2018-11-12 10:02 | Emergency (ER) | payer MEDICARE, MEDICAID ==
[2018-11-12] MEDS ORDERED: Metoprolol Tartrate 25 MG Tab PO ONE (10:38)
[2018-11-12] MEDS ORDERED: Lisinopril 10 MG Tab PO ONE (10:39)
--- NOTE | 2018-11-12 10:44 | EDM.PDOC ---
ED HPI GENERAL MEDICAL PROBLEM - General Chief Complaint: Cardiovascular Problem Stated Complaint: HIGH BP, SENT FROM CARDIAC REHAB Time Seen by Provider: 11/12/18 10:30 Source of Information: Reports: Patient, Old Records, RN History Limitations: Reports: No Limitations - History of Present Illness INITIAL COMMENTS - FREE TEXT/NARRATIVE: 83 yo female was sent from PT to the ER for HTN this morning. Has been taking all of her meds as prescribed. BP runs 140 to 200 systolic normally. Had metoprolol tartrate 12.5 mg bid recently added to her regimen for BP control. Had a mild FERREIRA this morning that is now gone. Denies CP or SOB. Has an appt with Dr. Mathews tomorrow. 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 (see below) (usual meds) denies Pain Score (Numeric/FACES): 0 - Related Data Allergies Allergy/AdvReac Type Severity Reaction Status Date / Time No Known Allergies Allergy Verified 11/12/18 10:37 Home Meds: Home Meds Alendronate Sodium [Fosamax] 70 mg PO WEEKLY 09/07/17 [History] Aspirin 81 mg PO DAILY 09/07/17 [History] Calcium Carbonate [Calcium] 500 mg PO DAILY 09/07/17 [History] Clopidogrel [Plavix] 75 mg PO DAILY 09/07/17 [History] Furosemide 40 mg PO DAILY 09/07/17 [History] Lisinopril 10 mg PO DAILY 09/07/17 [History] Metoprolol Tartrate 25 mg PO BID 09/07/17 [History] [place]-3 Fatty Acids [[place]-3] 1,000 mg PO DAILY 09/07/17 [History] Simvastatin [Zocor] 40 mg PO BEDTIME 09/07/17 [History] hydroCHLOROthiazide [Hydrochlorothiazide] 25 mg PO DAILY 09/07/17 [History] Pantoprazole [ProTONIX] 40 mg PO BIDAC #60 tab.cr 09/13/17 [Rx] Past Medical History HEENT History: Reports: Impaired Vision Other HEENT History: wear glasses Cardiovascular History: Reports: High Cholesterol, Hypertension, Stents Gastrointestinal History: Reports: Other (See Below) Other Gastrointestinal History: "bleeding ulcer" 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: Musculoskeletal History: Reports: Other (See Below) Other Musculoskeletal History: cerebral palsy Endocrine/Metabolic History: Reports: Obesity/BMI 30+ Hematologic History: Reports: Blood Transfusion(s) - Past Surgical History Cardiovascular Surgical History: Reports: Coronary Artery Stent GI Surgical History: Reports: Appendectomy, Colonoscopy, EGD Musculoskeletal Surgical History: Reports: Other (See Below) Other Musculoskeletal Surgeries/Procedures:: MULTIPLE SURGERIES R/T CP Social & Family History - Family History Family Medical History: Noncontributory Cardiac: Reports: CAD - Caffeine Use Caffeine Use: Reports: Coffee ED ROS GENERAL - Review of Systems Review Of Systems: See Below Constitutional: Reports: No Symptoms HEENT: Reports: No Symptoms Respiratory: Reports: No Symptoms Cardiovascular: Reports: Blood Pressure Problem Endocrine: Reports: No Symptoms GI/Abdominal: Reports: No Symptoms : Reports: No Symptoms Musculoskeletal: Reports: No Symptoms Skin: Reports: No Symptoms Neurological: Reports: Headache (now gone) Psychiatric: Reports: No Symptoms ED EXAM, GENERAL - Physical Exam Exam: See Below Exam Limited By: No Limitations General Appearance: Alert, WD/WN, No Apparent Distress, Obese Eye Exam: Bilateral Eye: Normal Inspection Ears: Normal External Exam, Normal Canal, Hearing Grossly Normal, Normal TMs Ear Exam: Bilateral Ear: Auricle Normal, Canal Normal Nose: Normal Inspection, No Blood Throat/Mouth: Normal Inspection, Normal Lips, Normal Oropharynx, Normal Voice, No Airway Compromise Head: Atraumatic, Normocephalic Neck: Normal Inspection Respiratory/Chest: No Respiratory Distress, Lungs Clear, Normal Breath Sounds, No Accessory Muscle Use Cardiovascular: Regular Rate, Rhythm, No Edema Back Exam: Normal Inspection Extremities: Normal Inspection, Normal Range of Motion, Non-Tender, No Pedal Edema Neurological: Alert, Oriented, CN II-XII Intact, Normal Cognition, No Motor/ Sensory Deficits Psychiatric: Normal Affect, Normal Mood Skin Exam: Warm, Dry, Intact, Normal Color, No Rash Course - Vital Signs Last Recorded V/S: Last Vital Signs Temp 36.8 C 11/12/18 10:36 Pulse 71 11/12/18 10:56 Resp 17 11/12/18 10:56 BP 187/90 H 11/12/18 10:56 Pulse Ox 97 11/12/18 10:56 - Orders/Labs/Meds Labs: Laboratory Tests 11/12/18 Range/Units 10:55 Sodium 141 (140-148) mmol/L Potassium 4.6 (3.6-5.2) mmol/L Chloride 105 (100-108) mmol/L Carbon Dioxide 27 (21-32) mmol/L Anion Gap 9.3 (5.0-14.0) mmol/L BUN 10 (7-18) mg/dL Creatinine 0.7 (0.6-1.0) mg/dL Est Cr Clr Drug Dosing 43.74 mL/min Estimated GFR (MDRD) > 60 (>60) Glucose 108 H (74-106) mg/dL Calcium 9.4 D (8.5-10.1) mg/dL Troponin I < 0.017 (0.000-0.056) ng/mL Meds: Medications Discontinued Medications Generic Name Dose Route Start Last Admin Trade Name Freq PRN Reason Stop Dose Admin Lisinopril 10 mg 11/12/18 10:39 11/12/18 10:55 Prinivil PO 11/12/18 10:40 10 mg ONETIME ONE Administration Metoprolol Tartrate 25 mg 11/12/18 10:38 11/12/18 10:55 Lopressor PO 11/12/18 10:39 25 mg ONETIME ONE Administration Departure - Departure Time of Disposition: 11:25 Disposition: Home, Self-Care 01 Condition: Fair Clinical Impression: HTN (hypertension) Qualifiers: Hypertension type: unspecified Qualified Code(s): I10 - Essential (primary) hypertension Instructions: Hypertension, [id number] Referrals: Juliano Mathews MD [Primary Care Provider] - Forms: ED Department Discharge Additional Instructions: Increase your lisinopril to 20 mg every morning. Increase your metoprolol tartrate to 50 mg every 12 hrs. Avoid salt or salty foods. Keep your appt for tomorrow with your doctor. Return here as needed.
== END 2018-11-12 11:55 | disposition home or self-care (01) ==
LOC: JP.ED 10:02
DX: I10 Essential (primary) hypertension (principal); E66.9 Obesity, unspecified; Z79.82 Long term (current) use of aspirin; Z79.899 Other long term (current) drug therapy; Z95.5 Presence of coronary angioplasty implant and graft; Z90.49 Acquired absence of other specified parts of digestive tract
CPT/HCPCS: 36415; 80048; 84484; 99283; A9270

== ENCOUNTER 2022-04-02 14:41 | Observation (INO) | payer MEDICARE, MEDICAID ==
[2022-04-02] MEDS ORDERED: Ondansetron 4 MG Tab.DIS PO PRN (18:02)
[2022-04-02] MEDS ORDERED: Acetaminophen 325 MG Tab PO PRN (18:02)
[2022-04-02] MEDS ORDERED: oxyCODONE 5 MG Tab PO PRN (18:02)
[2022-04-02] MEDS: Enoxaparin 40 MG/0.4 ML Syringe SUBCUT SCH (21:08)
[2022-04-02] MEDS: Metoprolol Tartrate 25 MG Tab PO SCH (21:08)
[2022-04-02] MEDS: atorvaSTATin 20 MG Tab PO SCH (21:08)
[2022-04-03] MEDS ORDERED: Pantoprazole 40 MG Tab.CR **PTOM PO SCH (07:30)
[2022-04-03] MEDS ORDERED: Lisinopril 10 MG Tab PO SCH ×2 (09:00→10:45)
[2022-04-03] MEDS: Aspirin 81 MG Tab.Chew PO SCH (10:32)
[2022-04-03] MEDS: Hydrochlorothiazide 25 MG Tab PO SCH (10:33)
[2022-04-03] MEDS: Furosemide 40 MG Tab PO SCH (10:33)
[2022-04-03] MEDS: Metoprolol Tartrate 25 MG **PTOM PO SCH ×2 (10:34→20:30)
[2022-04-03] MEDS: Clopidogrel 75 MG Tab PO SCH (10:35)
[2022-04-03] MEDS: Calcium Carbonate 500 MG Tab.Chew PO SCH (10:36)
[2022-04-03] MEDS ORDERED: Non-Formulary Medication 1 Each (Amlodipine Besylate [Amlodipine Besylate] 5 MG Tablet) PO SCH (10:45)
[2022-04-03] MEDS ORDERED: Non-Formulary Medication 1 Each (Pantoprazole Sodium [Protonix] 40 MG Tablet.Dr) PO SCH (10:45)
[2022-04-03] MEDS: Metoprolol Tartrate 25 MG Tab PO SCH (12:21)
[2022-04-03] MEDS: amLODIPine 5 MG Tab (PTOM) PO SCH (12:22)
[2022-04-03] MEDS: Lisinopril 20 MG Tab (PTOM) PO SCH (12:23)
[2022-04-03] MEDS: Enoxaparin 40 MG/0.4 ML Syringe SUBCUT SCH (20:30)
[2022-04-03] MEDS: atorvaSTATin 20 MG Tab PO SCH (20:31)
[2022-04-03] MEDS ORDERED: SIMVASTATIN 40MG **PTOM PO SCH (21:00)
[2022-04-04] MEDS ORDERED: Pantoprazole 40 MG Tab.CR **PTOM PO SCH (07:30)
[2022-04-04] MEDS: Furosemide 40 MG Tab PO SCH (08:45)
[2022-04-04] MEDS: Hydrochlorothiazide 25 MG Tab PO SCH (08:46)
[2022-04-04] MEDS: Aspirin 81 MG Tab.Chew PO SCH (08:46)
[2022-04-04] MEDS: Clopidogrel 75 MG Tab PO SCH (08:46)
[2022-04-04] MEDS: Metoprolol Tartrate 25 MG **PTOM PO SCH (08:47)
[2022-04-04] MEDS: Lisinopril 20 MG Tab (PTOM) PO SCH (08:49)
[2022-04-04] MEDS: amLODIPine 5 MG Tab (PTOM) PO SCH (08:49)
[2022-04-04] MEDS: Calcium Carbonate 500 MG Tab.Chew PO SCH (08:50)
== END 2022-04-04 11:50 ==
LOC: JP.ED 14:41 → JP.MS 17:01
PROVIDERS: ADMIT Hospitalist; ATTEND Internal Medicine
DX: S52.601A Unspecified fracture of lower end of right ulna, initial encounter for closed fracture (principal); S52.201A Unspecified fracture of shaft of right ulna, initial encounter for closed fracture; G80.9 Cerebral palsy, unspecified; I25.10 Atherosclerotic heart disease of native coronary artery without angina pectoris; E78.00 Pure hypercholesterolemia, unspecified; I10 Essential (primary) hypertension; E66.9 Obesity, unspecified; Z87.891 Personal history of nicotine dependence; Z79.899 Other long term (current) drug therapy; Z79.82 Long term (current) use of aspirin; Z20.822 Contact with and (suspected) exposure to COVID-19
CPT/HCPCS: 36415; 73110; 80048; 85025; 96372; 97161; 99217; 99219; 99225; A9270; G0008; G0378; J1650; U0002

== ENCOUNTER 2022-06-12 15:54 | Emergency (ER) | payer MEDICARE, MEDICAID ==
[2022-06-12 17:49] LABS: TROPONIN I HIGH SENSITIVITY 10.4 pg/mL (<=60.3)
== END 2022-06-12 19:39 | disposition home or self-care (01) ==
LOC: JP.ED 15:54
DX: R55 Syncope and collapse (principal); R07.89 Other chest pain; I25.10 Atherosclerotic heart disease of native coronary artery without angina pectoris; E78.00 Pure hypercholesterolemia, unspecified; I10 Essential (primary) hypertension; E66.9 Obesity, unspecified; Z68.33 Body mass index [BMI] 33.0-33.9, adult; Z79.899 Other long term (current) drug therapy; Z79.82 Long term (current) use of aspirin; Z90.49 Acquired absence of other specified parts of digestive tract; Z87.891 Personal history of nicotine dependence
CPT/HCPCS: 36415; 80048; 84484; 85025; 99283; 99285

== ENCOUNTER 2023-07-30 13:35 | Inpatient (IN) | payer MEDICARE, MEDICAID ==
[2023-07-30] MEDS: predniSONE 20 MG Tab PO ONE (14:24)
[2023-07-30] MEDS: Cyclobenzaprine 10 MG Tab PO ONE (14:25)
[2023-07-30] MEDS: Acetaminophen 500 MG Tab PO ONE (14:25)
[2023-07-30 18:56] LABS: BASOPHILS PERCENT AUTO 0.5 % (0.1-1.3); EOSINOPHILS ABSOLUTE AUTO 0.12 K/uL (0.00-0.40); EOSINOPHILS PERCENT AUTO 2.8 % (0.0-5.4); HEMATOCRIT 36.1 % (34.3-46.0); IMMATURE GRAN PERCENT AUTO 0.2 % (0.0-0.7); LYMPHOCYTES PERCENT AUTO 23.1 % (11.4-47.7); MEAN CORPUSCULAR HEMOGLOBIN 28.9 pg (31.6-35.5); MEAN CORPUSCULAR HGB CONC 33.2 g/dL (31.6-35.5); MONOCYTES ABSOLUTE AUTO 0.43 K/uL (0.20-0.90); MONOCYTES PERCENT AUTO 9.9 % (3.3-12.6); NEUTROPHILS ABSOLUTE AUTO 2.75 K/uL (1.0-7.6); NEUTROPHILS PERCENT AUTO 63.5 % (40.0-78.1); PLATELET COUNT,PLT 147 K/uL (130-375); RED BLOOD CELL COUNT 4.15 M/uL (3.77-5.24); WHITE BLOOD CELL COUNT,WBC 4.3 K/uL (3.2-11.0)
[2023-07-30 18:57] LABS: BASOPHILS ABSOLUTE AUTO 0.02 K/uL (0.00-0.10); IMMATURE GRAN ABSOLUTE AUTO 0.01 K/uL (0.00-0.23)
[2023-07-30 18:57] LABS: CORONAVIRUS COVID-19 NAA NEGATIVE (NEGATIVE); INFLUENZA A NAA NEGATIVE (NEGATIVE); INFLUENZA B NAA NEGATIVE (NEGATIVE); RESPIRATORY SYNCYTIAL VIR NAA NEGATIVE (NEGATIVE)
[2023-07-30 18:59] LABS: CALCIUM 9.3 mg/dL (8.5-10.1); CREATININE 1.4 mg/dL (0.6-1.0); EST CRCL DRUG DOSING (CG) 19.95 mL/min; MAGNESIUM 2.1 mg/dL (1.8-2.4); POTASSIUM,K 4.2 mmol/L (3.6-5.2)
[2023-07-30 19:00] LABS: ANION GAP 16.2 mmol/L (5.0-14.0)
[2023-07-30] MEDS ORDERED: Ondansetron 4 MG Tab.DIS PO PRN (21:11)
[2023-07-30 21:18] LABS: APPEARANCE,URINE CLEAR (CLEAR); BILIRUBIN,URINE NEGATIVE (NEGATIVE); COLOR,URINE YELLOW (YELLOW); GLUCOSE,URINE NEGATIVE (NEGATIVE); KETONES,URINE 15 mg/dL (NEGATIVE); LEUKOCYTE ESTERASE,URINE NEGATIVE (NEGATIVE); NITRITE,URINE NEGATIVE (NEGATIVE); OCCULT BLOOD,URINE NEGATIVE (NEGATIVE); PROTEIN,URINE NEGATIVE (NEGATIVE); UROBILINOGEN,URINE 0.2 EU/dL (0.2-1.0)
[2023-07-30 21:39] LABS: BACTERIA,URINE FEW; EPITHELIAL CELLS,URINE FEW; MUCUS,URINE RARE; RBC,URINE 0-5 (0-5)
[2023-07-30 21:40] LABS: AMORPHOUS SEDIMENT,URINE NOT SEEN
[2023-07-30] MEDS: Metoprolol Tartrate 25 MG Tab PO SCH (21:46)
[2023-07-30] MEDS: Lidocaine 4% 1 each Patch TOP SCH (21:47)
[2023-07-30] MEDS: Potassium Chloride 20 MEQ Tab.ER PO SCH (21:47)
[2023-07-30] MEDS: atorvaSTATin 20 MG Tab PO SCH (23:07)
[2023-07-31] MEDS: Pantoprazole 40 MG Tab.CR PO SCH (06:52)
[2023-07-31] MEDS: Clopidogrel 75 MG Tab PO SCH (08:45)
[2023-07-31] MEDS: Lisinopril 20 MG Tab PO SCH (08:45)
[2023-07-31] MEDS: Calcium Carbonate 500 MG Tab.Chew PO SCH (08:46)
[2023-07-31] MEDS: Furosemide 40 MG Tab PO SCH (08:47)
[2023-07-31] MEDS: REMOVE LIDOCAINE TRDERM SCH (08:47)
[2023-07-31] MEDS: Hydrochlorothiazide 25 MG Tab PO SCH (08:47)
[2023-07-31] MEDS: Enoxaparin 30 MG/0.3 ML Syringe SUBCUT SCH (18:44)
[2023-07-31] MEDS: Metoprolol Tartrate 25 MG Tab (PTOM) PO SCH (21:16)
[2023-07-31] MEDS: Potassium Chloride 20 MEQ Tab.ER (PTOM) PO SCH (21:16)
[2023-07-31] MEDS: SIMVASTATIN 40 MG PO SCH (21:17)
[2023-08-01] MEDS: Pantoprazole 40 MG Tab.CR (PTOM) PO SCH (07:07)
[2023-08-01] MEDS: Clopidogrel 75 MG Tab (PTOM) PO SCH (08:44)
[2023-08-01] MEDS: Lisinopril 20 MG Tab (PTOM) PO SCH (08:44)
[2023-08-01] MEDS: oxyCODONE 5 MG Tab PO PRN (13:48)
[2023-08-01] MEDS: Cyclobenzaprine 10 MG Tab PO PRN (16:53)
[2023-08-01] MEDS: Diclofenac Sodium 1% Gel 100 GM Tube TOP PRN (16:55)
[2023-08-01] MEDS: Acetaminophen 325 MG Tab PO PRN (22:25)
[2023-08-02] MEDS: Clopidogrel 75 MG Tab PO SCH (09:09)
[2023-08-02] MEDS: Metoprolol Tartrate 25 MG Tab PO SCH (09:11)
[2023-08-02] MEDS: Lisinopril 20 MG Tab PO SCH (09:13)
[2023-08-02] MEDS: Dexamethasone 2 MG Tab PO SCH (13:44)
[2023-08-02] MEDS: Gabapentin 100 MG Cap PO SCH (13:44)
[2023-08-03] MEDS ORDERED: Pantoprazole 40 MG Tab.CR PO SCH (07:30)
== END 2023-08-02 14:44 | DRG 552 ==
LOC: JP.ED 13:35 → JP.MS 19:37 → JP.2SS 08-01 08:11 → OBSVTOIN 08-01 10:22
PROVIDERS: ADMIT Nurse Practitioner; ATTEND Hospitalist
DX: M48.061 Spinal stenosis, lumbar region without neurogenic claudication (principal); M79.662 Pain in left lower leg; G80.9 Cerebral palsy, unspecified; G80.2 Spastic hemiplegic cerebral palsy; Z74.09 Other reduced mobility; M25.80 Other specified joint disorders, unspecified joint; S39.012A Strain of muscle, fascia and tendon of lower back, initial encounter; I25.10 Atherosclerotic heart disease of native coronary artery without angina pectoris; E78.00 Pure hypercholesterolemia, unspecified; M54.16 Radiculopathy, lumbar region; I10 Essential (primary) hypertension; E66.9 Obesity, unspecified; R79.89 Other specified abnormal findings of blood chemistry; Z66 Do not resuscitate; X58.XXXA Exposure to other specified factors, initial encounter; M79.18 Myalgia, other site; Z99.3 Dependence on wheelchair; Z79.899 Other long term (current) drug therapy; Z79.02 Long term (current) use of antithrombotics/antiplatelets; Z95.5 Presence of coronary angioplasty implant and graft; Z68.27 Body mass index [BMI] 27.0-27.9, adult; Z90.49 Acquired absence of other specified parts of digestive tract; Z87.891 Personal history of nicotine dependence
CPT/HCPCS: 0241U; 36415; 71045; 72148; 80048; 81001; 82150; 83735; 85025; 85379; 93971; 97110; 97140; 97161; 99285; 99222; 99232; 99238; A9270-GY; J1650; J7512; J8540